=== PATIENT | female | born 1975 | race Caucasian/White ===

== ENCOUNTER 2016-12-21 07:44 | Day surgery (SDC) | payer MEDICAID ==
[~2016-12-21] VITALS: Ht 162.6 cm; Wt 202.7 kg
--- NOTE | ~2016-12-21 | OR ---
PATIENT'S NAME: GIL ALDRIDGE [facility] AGE: 41 Y [address] ROOM: [place] [address] LOCATION: [facility] – [place] ADMIT DATE: 12/21/2016 OR/Procedure Report DISCHARGE DATE: FAMILY PHYSICIAN: Jose E Guillermo MD ATTENDING PHYSICIAN: Ritchie Stephens SURGEON: Ritchie Stephens MD INTERMODAL TRUCK DRIVER: Francisco Elena PA-C. 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 PROCEDURE PERFORMED: 1. Right axillary sentinel lymph node biopsy. 2. Injection of blue dye. FINDINGS: Two lymph nodes were identified, both with counts greater than 600. Background counts were less than 50. ESTIMATED BLOOD LOSS: 20 mL. COMPLICATIONS: None. INDICATIONS: The patient is a 41-year-old female who had a melanoma on her right back excised. This was 1.18 mm in depth. We discussed sentinel node biopsy with the patient, the risks, benefits, and alternatives, and she wished to proceed. DESCRIPTION OF PROCEDURE: The patient was taken to the operating room, she was supine. Preoperatively, she had been injected with radiocolloid by Nuclear Medicine. This was then mapped. There were two lymph nodes identified in the axilla by mapping. We subsequently injected blue dye, this was 5 mL of dilute methylene blue injected around her incision in the right upper back after the patient was asleep. Her axilla was then prepped with ChloraPrep and sterilely draped. An incision was created near the area where the lymph nodes were mapped. This was carried into the subcutaneous tissues. Due to her obesity, this dissection was more difficult. Ultimately, we were able to identify the first sentinel node which had counts greater than 600, dissected around circumferentially and removed. There was a second node also identified with counts of approximately 600 and also removed. On further examination of the axilla, there were no palpable nodes. Examination with the Neoprobe revealed all counts to be less than 50. Hemostasis was checked and PATIENT'S NAME: GIL ALDRIDGE [facility] AGE: 41 Y [address] ROOM: [place] [address] LOCATION: [facility] [place] ADMIT DATE: 12/21/2016 OR/Procedure Report DISCHARGE DATE: FAMILY PHYSICIAN: Jose E Guillermo MD ATTENDING PHYSICIAN: Ritchie Stephens been obtained. Deep dermal layer was then approximated with 3-0 Vicryl suture and skin closed with 4-0 Monocryl suture. Francisco Elena assisted in the procedure and was necessary for retraction, visualization, and hemostasis throughout the entire case. MD THELMA SOTOO/modl /[id number] d: 12/21/16 2223 t: 12/31/16 0609, OPERATIVE SUMMARY
[~2016-12-21 07:44] MED LIST: CALTRATE 600 +1 EAC1 PO; DEPO PROVER150 MG/ML SUB-Q; INDERAL PO; NAPROSYN500 MG PO; NORCO 7.5-3251 EACH PO; VITAMIN B-1000 MCG/M PO
[2016-12-21] MEDS ORDERED: NORCO 5-325 TA1 EACH PO (15:24)
== END 2016-12-21 15:55 | disposition disaster alternative care site (69) ==
LOC: GSDC 07:44
PROC: 07B50ZX Excision of Right Axillary Lymphatic, Open Approach, Diagnostic (ICD-10-PCS; principal; 2016-12-21)
DX: C43.59 Malignant melanoma of other part of trunk (principal); K21.9 Gastro-esophageal reflux disease without esophagitis; I10 Essential (primary) hypertension; E66.9 Obesity, unspecified; Z68.45 Body mass index [BMI] 70 or greater, adult; Z87.891 Personal history of nicotine dependence; Z90.49 Acquired absence of other specified parts of digestive tract; Z91.040 Latex allergy status; Z88.2 Allergy status to sulfonamides
CPT/HCPCS: A9520; J0690; J1100; J2001; J2405; J3010; J7030; Q9968